=== PATIENT | male | born 1970 | race Caucasian/White ===

== ENCOUNTER 2016-03-04 12:00 | Emergency (ER) | payer OTHER ==
[2016-03-04 12:08] VITALS: BP 134/97; PULSE 77; TEMP 98; BMI 31.9
--- NOTE | 2016-03-04 13:24 | PDOC ---
History of Present Illness - General Chief Complaint: Sore Throat Stated Complaint: SORE THROAT, COUGH Time Seen by Provider: 03/04/16 12:13 History Source: Patient Exam Limitations: No Limitations - History of Present Illness Initial Comments: 03/04/16 12:23 45-year-old male presents to ED with complaints of sore throat for the past few days associated with dry hacking cough and burning to his mid chest with coughing and deep breathing. Patient denies fever, chills, headache, ear pain, posterior neck pain, recent travel, recent illness. Patient does state recent diagnosis of GERD and recent started Prilosec one week ago that was recommended by his PCP and unsure if symptoms are related to reflux versus an infection Timing/Duration: reports: other (3 days) Severity: reports: moderate Associated Symptoms: reports: cough, sore throat. 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 No: Difficulty Swallowing Respiratory: Yes: Cough (ry) Cardiac (ROS): No: Symptoms Reported ABD/GI: No: Symptoms Reported : No: Symptoms Reported Musculoskeletal: No: Symptoms Reported Integumentary: No: Symptoms Reported Neurological: No: Symptoms reported, Headache Endocrine: No: Symptoms Reported *Physical Exam - Vital Signs Last Vital Signs Temp Pulse Resp BP Pulse Ox 98.0 F 77 20 134/97 100 03/04/16 12:04 03/04/16 12:04 03/04/16 12:04 03/04/16 12:04 03/04/16 12:04 - Physical Exam General Appearance: Yes: Nourished, Appropriately Dressed. No: Apparent Distress HEENT: positive: EOMI, IAN, TMs Normal, Pharyngeal Erythema (no exudate. 2+) Neck: positive: Supple. negative: Lymphadenopathy (R), Lymphadenopathy (L) Respiratory/Chest: positive: Lungs Clear, Normal Breath Sounds. negative: Respiratory Distress, Accessory Muscle Use Cardiovascular: positive: Regular Rhythm, Regular Rate. negative: Murmur Gastrointestinal/Abdominal: positive: Soft. negative: Tenderness Integumentary: positive: Normal Color, Warm, Moist Neurologic: positive: Motor Strength 5/5 (ambulatory) Medical Decision Making - Medical Decision Making 03/04/16 12:24 Patient complain of sore throat, dry cough and burning sensation to his bronchus. Patient does not smoke and denies medical history except for recent diagnosis of GERD. Patient has not taken anything for the above. Patient on exam had pharyngeal erythema. Will rule out strep. Specimen sent to lab 03/04/16 13:26 negative for strep. Discharge home with supportive care. *DC/Admit/Observation/Transfer Diagnosis at time of Disposition: Viral pharyngitis - Discharge Dispostion Disposition: HOME Condition at time of disposition: Good - Referrals Referrals: Lobo Rodriguez MD [Primary Care Provider] - - Patient Instructions Printed Discharge Instructions: DI for Viral Pharyngitis Additional Instructions: I recommend taking using Chloraseptic [place] to alleviate discomfort and continue with Motrin or Tylenol. Avoid abrasive/harsh foods and drink warm fluids. I also recommend you follow up with your PCP to discuss management of your acid reflux.
== END 2016-03-04 14:08 | disposition home or self-care (01) ==
LOC: JERFT 12:00
DX: J02.8 Acute pharyngitis due to other specified organisms (principal); B97.89 Other viral agents as the cause of diseases classified elsewhere
CPT/HCPCS: 87070; 87430; 99281-25